=== PATIENT | male | born 1965 | race Caucasian/White ===

== ENCOUNTER 2018-07-22 07:44 | Emergency (ER) | payer OTHER ==
[~2018-07-22] VITALS: Ht 172.7 cm; Wt 77.3 kg
[~2018-07-22 07:44] MED LIST: NAPROSYN500 MG PO; PERCOCET 5/325M1 TAB PO
[2018-07-22] MEDS ORDERED: TORADOL PO (09:52)
[2018-07-22] MEDS ORDERED: MEDDOSEPAK PO (09:52)
[2018-07-22] MEDS ORDERED: FLEXERIL PO (09:52)
[2018-07-22 10:09] VITALS: BP 148/108
[2018-07-22] MEDS ORDERED: LISINOPRIL20 MG PO (10:09)
== END 2018-07-22 10:18 | disposition home or self-care (01) | DRG 552 ==
LOC: ED 07:44
DX: M47.812 Spondylosis without myelopathy or radiculopathy, cervical region (principal); I10 Essential (primary) hypertension

== ENCOUNTER 2020-07-01 15:35 | Emergency (ER) | payer OTHER ==
[~2020-07-01] VITALS: Ht 172.7 cm; Wt 75.0 kg
[~2020-07-01 15:35] MED LIST changes: +FLEXERIL PO; +LISINOPRIL20 MG PO; +MEDDOSEPAK PO; +TORADOL PO
[2020-07-01 16:47] LABS: HEMATOCRIT 40.9 % (39.0-50.0); HEMOGLOBIN 13.5 g/dl (14.0-18.0); IMMATURE GRANULOCYTES 0.4 % (0.0-5.0); MEAN CELL VOLUME 88.5 fL CALC (80.0-100.0); MEAN CORPUSCULAR HGB 29.2 pG CALC (26.0-32.0); NEUT# 7.85 thou/uL (1.82-7.42); RED BLOOD COUNT 4.62 mill/uL (4.70-6.10); RED CELL DISTRI WIDTH 13.2 % (11.5-15.5)
[2020-07-01] MEDS ORDERED: PREDNISONE5 MG PO (16:56)
[2020-07-01 17:05] LABS: ALBUMIN 4.4 g/dL (3.2-5.0); ALKALINE PHOSPHATASE 76 u/l (38-126); ANION GAP 11 (6-22 (CALC)); BILIRUBIN, TOTAL 0.4 mg/dL (0.0-1.4); BUN 11 mg/dL (9-20); BUN/CREATININE RATIO 13 (12-20 (CALC)); CARBON DIOXIDE 25 mmol/l (22-30); CHLORIDE 100 mmol/l (95-108); CREATININE 0.8 mg/dL (0.7-1.3); GFR > 60 ML/MIN (>=60 (CALC)); GFR FOR AFR.AMER. > 60 ML/MIN (>=60 (CALC)); POTASSIUM 3.8 mmol/l (3.5-5.1); SGOT/AST 23 u/l (17-59); SODIUM 132 mmol/l (137-146); TOTAL PROTEIN 7.5 g/dL (6.3-8.2)
[2020-07-01 17:07] LABS: ACT PARTIAL THROMBO TIME 21.3 SECONDS (20.0-32.5); INTERNATIONAL NORMALIZED RATIO 0.9 RATIO (0.7-1.3); PROTHROMBIN TIME 9.3 SECONDS (9.0-12.5)
[2020-07-01 17:53] VITALS: BP 136/91
== END 2020-07-01 18:00 | disposition home or self-care (01) | DRG 313 ==
LOC: ED 15:35
PROVIDERS: Student in an Organized Health Care Education/Training Program
DX: R07.9 Chest pain, unspecified (principal); R03.0 Elevated blood-pressure reading, without diagnosis of hypertension; M19.90 Unspecified osteoarthritis, unspecified site; Z79.52 Long term (current) use of systemic steroids

== ENCOUNTER 2022-10-01 15:28 | Inpatient (IN) | payer OTHER ==
[2022-10-01] VITALS (17 sets, daily range): BP systolic 129–162; BP diastolic 82–116
[~2022-10-01] VITALS: Ht 172.7 cm; Wt 79.0 kg
[~2022-10-01 15:28] MED LIST changes: +PREDNISONE5 MG PO
[2022-10-01] MEDS ORDERED: OMEPRAZOLE DR10 MG (15:44)
--- NOTE | 2022-10-01 15:45 | NUR ---
PT AMBULATES TO ROOM 12 FOR EVAL OF ABD PAIN
[2022-10-01 15:50] LABS: HEMATOCRIT 39.3 % (39.0-50.0); HEMOGLOBIN 13.8 g/dl (14.0-18.0); IMMATURE GRANULOCYTES 0.1 % (0.0-5.0); MEAN CELL VOLUME 88.7 fL CALC (80.0-100.0); MEAN CORPUSCULAR HGB 31.2 pG CALC (26.0-32.0); MEAN CORPUSCULAR HGB CONC 35.1 g/dL CAL (32.0-36.0); NEUT# 7.46 thou/uL (1.82-7.42); RED BLOOD COUNT 4.43 mill/uL (4.70-6.10); RED CELL DISTRI WIDTH 12.4 % (11.5-15.5)
[2022-10-01 16:02] LABS: ALBUMIN 4.7 g/dL (3.2-5.0); ALKALINE PHOSPHATASE 87 u/l (38-126); ANION GAP 14 (6-22 (CALC)); BILIRUBIN, TOTAL 0.4 mg/dL (0.0-1.4); BUN 12 mg/dL (9-20); BUN/CREATININE RATIO 15 (12-20 (CALC)); CARBON DIOXIDE 23 mmol/l (22-30); CHLORIDE 104 mmol/l (95-108); CREATININE 0.8 mg/dL (0.7-1.3); GFR FOR AFR.AMER. > 60 ML/MIN (>=60 (CALC)); GFR OTHER RACES > 60 ML/MIN (>=60 (CALC)); POTASSIUM 4.1 mmol/l (3.5-5.1); SGOT/AST 30 u/l (17-59); SODIUM 137 mmol/l (137-146)
[2022-10-01 16:14] LABS: LIPASE 3155 u/l (23-300)
--- NOTE | 2022-10-01 16:40 | NUR ---
PT IN ROOM LAYING IN BED WITH FLUIDS RUNNING. PT CONTINUES TO COMPLAIN OF PAIN /. PROVIDER IS MADE AWARE OF PT'S COMPLAINT
[2022-10-01 17:10] LABS: URINE BILIRUBIN - DIPSTICK NEGATIVE (NEGATIVE); URINE BLOOD DIPSTICK TRACE-INTACT (NEGATIVE); URINE COLOR YELLOW; URINE GLUCOSE - DIPSTICK NEGATIVE (NEGATIVE); URINE KETONE NEGATIVE (NEGATIVE); URINE LEUK ESTERASE NEGATIVE (NEGATIVE); URINE PROTEIN - DIPSTICK NEGATIVE (NEG-TRACE); URINE SPECIFIC GRAVITY <=1.005; URINE UROBILINOGEN - DIPSTICK 0.2 E.U./dL (0.2)
[2022-10-01 17:13] LABS: URINE NITRITE - DIPSTICK NEGATIVE (Negative)
--- NOTE | 2022-10-01 17:40 | NUR ---
Reassessment of patient completed. No distress noted.
--- NOTE | 2022-10-01 18:33 | NUR ---
PT IS ADMITTED TO [facility]. PT IN ROOM RESTING WITH EYES OPEN. PAIN MEDS WAS ADMISTERED PT CONTINUE TO C/O PAIN 07/08. PT WILL BE TRANSPORTED TO ROOM ONCE SHIFT CHANGE AFTER 1914. A COURTESY CALL MADE TO GIVE REPORT, NO ONE ANSWERED THE PHONE.
--- NOTE | 2022-10-01 19:25 | NUR ---
STATES "PAIN IS SO MUCH BETTER SINCE THE DILAUDID".
--- NOTE | 2022-10-01 19:39 | NUR ---
RESPORT CALLED TO MARA RE:ADMIT
--- NOTE | 2022-10-01 19:50 | NUR ---
PT ARRIVE TO UNIT VIA WHEEL CHAIR ACCOPANIED ER STAFF. A&O X3 ABLE COMMUNITACE NEEDS. PAIN 11/07. IV 20G TO RAC SL PATENT AND FLUSHES WELL. PT ORIENTED TO ROOM AND CALL LIGHT SYSTEM. ASSESMENT COMPLETED. NO S/S OF DISTRESS NOTED. CALL LIGHT IN REACH AND BED IN LOWEST POSITION.
--- NOTE | 2022-10-02 00:40 | NUR ---
PT IN BED RESTING WITH EYES CLSOED BREATHING EVEN AND UNLABORED. NO S/S OF DISTRESS NOTED. CALL LIGHT IN REACH AND BED IN LOWEST POSITION.
--- NOTE | 2022-10-02 04:30 | NUR ---
PT IN BED RESTING WITH EYES CLOSED BREATHIN EVEN AND UNLABORED. NO S/S OF DISTRESS NOTED. CALL LIGHT IN REACH AND BE DIN LOWEST POSITION.
[2022-10-02 05:18] LABS: HEMATOCRIT 35.8 % (39.0-50.0); HEMOGLOBIN 12.3 g/dl (14.0-18.0); IMMATURE GRANULOCYTES 0.2 % (0.0-5.0); MEAN CELL VOLUME 90.9 fL CALC (80.0-100.0); MEAN CORPUSCULAR HGB 31.2 pG CALC (26.0-32.0); MEAN CORPUSCULAR HGB CONC 34.4 g/dL CAL (32.0-36.0); NEUT# 3.15 thou/uL (1.82-7.42); RED BLOOD COUNT 3.94 mill/uL (4.70-6.10); RED CELL DISTRI WIDTH 12.7 % (11.5-15.5)
[2022-10-02 05:46] LABS: ALBUMIN 3.7 g/dL (3.2-5.0); ALKALINE PHOSPHATASE 122 u/l (38-126); ANION GAP 10 (6-22 (CALC)); BILIRUBIN, TOTAL 0.6 mg/dL (0.0-1.4); BUN 7 mg/dL (9-20); BUN/CREATININE RATIO 10 (12-20 (CALC)); CARBON DIOXIDE 27 mmol/l (22-30); CHLORIDE 106 mmol/l (95-108); CREATININE 0.7 mg/dL (0.7-1.3); GFR FOR AFR.AMER. > 60 ML/MIN (>=60 (CALC)); GFR OTHER RACES > 60 ML/MIN (>=60 (CALC)); MAGNESIUM 1.9 mg/dL (1.6-2.3); SGOT/AST 174 u/l (17-59); SODIUM 139 mmol/l (137-146); TOTAL PROTEIN 6.4 g/dL (6.3-8.2)
[2022-10-02 05:47] VITALS: BP 169/94
[2022-10-02 06:45] VITALS: BP 152/101
--- NOTE | 2022-10-02 07:00 | NUR ---
REPORT RECIEVED FROM [employer] SUPERVISOR NURSE CARE RESUMED
--- NOTE | 2022-10-02 08:14 | NUR ---
PT RESTING IN BED. UPDATED PT ON CURRENT PLAN OF CARE. PT VERBAlIZED UDNERSTANDING ASSESSMENT COMPLETED. FALL/SAFTEY PRECAUTION IN PLACE, CALL LIGHT WITHIN REACH.
--- NOTE | 2022-10-02 10:02 | NUR ---
MD AT BEDSIDE WITH DIPLOMA MAKER DISCUSSING PLAN OF CARE
[2022-10-02 10:08] VITALS: BP 158/89
[2022-10-02] MEDS ORDERED: LORTAB 5/3255 MG PO (10:35)
--- NOTE | 2022-10-02 12:00 | NUR ---
PT RESTING IN BED STATES PAIN OF 2/10. RELAXATION TECHNIQUES PROVIDED. BREATHING EVEN AND UNLABORED. STATES NO NEEDS AT THIS TIME. FALL/SAFTEY PRECAUTION IN PLACE, CALL LIGHT WITHIN REACH
--- NOTE | 2022-10-02 13:20 | NUR ---
Discharge instructions given. Patient verbalizes understanding of same. Discharged in stable condition via .Ambulatory to Home with staff. All belongings sent with pt.
== END 2022-10-02 13:20 | disposition home or self-care (01) | DRG 440 ==
LOC: ED 15:28 → ED-I 17:30 → ED 17:47 → MS2 17:48
PROVIDERS: Family Medicine; ADMIT Internal Medicine; ATTEND Internal Medicine
DX: K85.20 Alcohol induced acute pancreatitis without necrosis or infection (principal); K86.0 Alcohol-induced chronic pancreatitis; F10.10 Alcohol abuse, uncomplicated; I10 Essential (primary) hypertension; F32.A Depression, unspecified; F41.9 Anxiety disorder, unspecified; M19.90 Unspecified osteoarthritis, unspecified site
CPT/HCPCS: Q9967

== ENCOUNTER 2023-12-17 12:12 | Emergency (ER) | payer OTHER ==
[~2023-12-17] VITALS: Ht 172.7 cm; Wt 72.0 kg
[~2023-12-17 12:12] MED LIST changes: +LORTAB 5/3255 MG PO; +OMEPRAZOLE DR10 MG
[2023-12-17 13:24] VITALS: BP 133/106
[2023-12-17 13:39] VITALS: BP 138/99
[2023-12-17 14:02] VITALS: BP 129/91
[2023-12-17] MEDS ORDERED: methylPREDNISolone SODIUM SUCC 125 MG/2 ML SDV IM ONE (14:20)
[2023-12-17] MEDS ORDERED: METHOCARBAMOL 500 MG/TAB PO ONE (14:20)
[2023-12-17] MEDS ORDERED: KETOROLAC TROMETHAMINE 30 MG/ML SDV IM ONE (14:20)
[2023-12-17] MEDS ORDERED: METHOCARBAMOL500 MG PO (15:33)
[2023-12-17 15:38] VITALS: BP 129/91
== END 2023-12-17 15:45 | disposition home or self-care (01) | DRG 552 ==
LOC: ED 12:12
DX: M62.830 Muscle spasm of back (principal); I10 Essential (primary) hypertension; F41.9 Anxiety disorder, unspecified; F32.A Depression, unspecified; Z20.822 Contact with and (suspected) exposure to COVID-19